=== PATIENT | female | born 1990 | race Caucasian/White ===

== ENCOUNTER → 2020-09-15 11:00 | Outpatient (BNVA) | payer OTHER, SELFPAY | PROVIDERS: PCP Internal Medicine; Visit Provider Advanced Practice Midwife | DX: L30.9 Dermatitis, unspecified (principal); Z97.5 Presence of (intrauterine) contraceptive device | CPT/HCPCS: 81025; 99212 ==

== ENCOUNTER 2021-04-19 12:07 | Outpatient (REF) | payer OTHER, SELFPAY | END 2021-04-19 12:08 | disposition home or self-care (01) | LOC: HO.LAB 12:07 | PROVIDERS: Visit Provider Internal Medicine | DX: Z13.89 Encounter for screening for other disorder (principal) ==